=== PATIENT | female | born 1970 | race Caucasian/White ===

== ENCOUNTER 2018-05-20 14:42 | Emergency (ER) | payer OTHER ==
[~2018-05-20] VITALS: Ht 177.8 cm; Wt 90.7 kg
[2018-05-20 15:19] LABS: ABSOLUTE EOSINOPHILS 0.2 thou/uL (0.0-0.7); ABSOLUTE LYMPHOCYTES 2.4 thou/uL (0.8-5.3); ABSOLUTE MONOCYTES 0.8 thou/uL (0.0-1.2); ABSOLUTE NEUTROPHILS 4.3 thou/uL (1.6-8.1); BASOPHILS 0.5 %; EOSINOPHILS 2.7 %; HEMATOCRIT 38.8 % (37.0-47.0); HEMOGLOBIN 12.5 gm/dL (12.0-15.0); LYMPHOCYTES 30.8 %; MCH 28.1 pg (26.0-34.0); MCHC 32.1 g/dL (28.0-37.0); MCV 87.4 fL (80.0-100.0); NUCLEATED RBCS 0 /100WBC; PLATELET COUNT* 254 thou/uL (150-400); RBC 4.44 mil/uL (4.20-5.00); RDW-CV 16.9 % (10.5-14.5); WBC 7.7 thou/uL (4.0-11.0)
[2018-05-20 15:26] LABS: ANION GAP 6 mmol/L (7-16); BUN 15 mg/dL (7-18); CALCIUM 8.4 mg/dL (8.5-10.1); CHLORIDE 105 mmol/L (98-107); CO2 27 mmol/L (21-32); CREATININE 0.8 mg/dL (0.6-1.3); GLUCOSE 94 mg/dL (70-99); POTASSIUM 4.1 mmol/L (3.5-5.1); SODIUM 138 mmol/L (136-145)
[2018-05-20 15:33] LABS: ALBUMIN 3.3 g/dL (3.4-5.0); ALKALINE PHOSPHATASE 92 U/L (46-116); SGOT 21 U/L (15-37); SGPT 22 U/L (30-65); TOTAL BILIRUBIN 0.2 mg/dL (<0.1-1.0); TOTAL PROTEIN 7.1 g/dL (6.4-8.2); TROPONIN-I LEVEL <0.06 ng/mL (<0.06)
[2018-05-20] MEDS ORDERED: LISINOPRIL10 MG PO (15:45)
[2018-05-20] MEDS ORDERED: NORCO 5-325 TA1 EACH PO (15:50)
[2018-05-20 16:03] VITALS: BP 202/99
--- NOTE | 2018-05-22 10:22 | EKG ---
[place] [address] ELECTROCARDIOGRAM REPORT Name: YESI LEI Room: [facility]#: [id number] Admission: 05/20/18 Attend Phys: Discharge: 05/20/18 Date of : 74 Report #: [id number] THIS REPORT FOR: //name// [facility] ED Test Date: 2018-05-20 Test Time: 14:49:35 Pat Name: YESI LEI Department: Room: Gender: F Couturiere: ALLEN : 1970 Requested By: Mickie Gonzales Order Number: [id number] MD: Walt Rueda Measurements Intervals [place] Rate: 76 P: -1 [place]: 178 QRS: -40 QRSD: 101 T: 7 QT: 393 QTc: 442 Interpretive Statements Sinus rhythm Left anterior fascicular block Abnormal R-wave progression, late transition Baseline wander in lead(s) II,III,aVF,V5,V6 Compared to ECG 05/07/2017 14:08:33 Left anterior fascicular block now present Left-axis deviation no longer present Electronically Signed On 05-22-2018 10:21:48 CDT by Walt Rueda [email or web address] <ELECTRONICALLY SIGNED> By: Walt Rueda MD, [facility] 05/22/18 1021 1449 1449 Walt Rueda MD, [facility] /EPI
== END 2018-05-20 16:13 | disposition home or self-care (01) ==
LOC: M.ERS 14:42
PROVIDERS: Nurse Practitioner Family
DX: R07.89 Other chest pain (principal); I10 Essential (primary) hypertension; Z86.73 Personal history of transient ischemic attack (TIA), and cerebral infarction without residual deficits

== ENCOUNTER 2019-03-09 01:26 | Emergency (ER) | payer OTHER ==
[~2019-03-09] VITALS: Ht 175.3 cm; Wt 117.9 kg
[~2019-03-09 01:26] MED LIST: ASPIR 8181 M1 PO; LISINOPRIL10 MG PO; LISINOPRIL20 MG PO; NORCO 5-325 TA1 EACH PO
[2019-03-09 02:07] LABS: CREATININE 0.8 mg/dL (0.6-1.3)
[2019-03-09 02:48] VITALS: BP 168/80
== END 2019-03-09 02:49 | disposition home or self-care (01) ==
LOC: M.ERS 01:26
PROVIDERS: Emergency Medicine Emergency Medical Services
DX: I10 Essential (primary) hypertension (principal); Z86.73 Personal history of transient ischemic attack (TIA), and cerebral infarction without residual deficits; Z86.2 Personal history of diseases of the blood and blood-forming organs and certain disorders involving the immune mechanism; Z98.890 Other specified postprocedural states; Z90.89 Acquired absence of other organs

== ENCOUNTER → 2019-08-24 | Outpatient (CLI) | payer OTHER | LOC: M.RAD 06:53 | DX: Z12.31 Encounter for screening mammogram for malignant neoplasm of breast (principal) ==

== ENCOUNTER → 2020-09-07 | Outpatient (CLI) | payer OTHER | LOC: M.RAD 07:53 | PROVIDERS: ATTEND Nurse Practitioner Family | DX: Z12.31 Encounter for screening mammogram for malignant neoplasm of breast (principal) ==

== ENCOUNTER → 2021-09-05 | Outpatient (CLI) | payer OTHER | LOC: M.RAD 09:00 | PROVIDERS: ATTEND Nurse Practitioner Family | DX: Z12.31 Encounter for screening mammogram for malignant neoplasm of breast (principal) ==